=== PATIENT | female | born 1960 | race African-American/Black ===

== ENCOUNTER 2018-08-03 12:05 | Inpatient (IN) | payer OTHER ==
[2018-08-03 12:57] VITALS: BMI 27.6
--- NOTE | 2018-08-03 14:02 | HP ---
CIWA Score Nausea/Vomitin-No Nausea/No Vomiting Muscle Tremors: None Anxiety: 4-Mod. Anxious/Guarded Agitation: 3 Paroxysmal Sweats: 2 Orientation: 0-Oriented Tacttile Disturbances: 0-None Auditory Disturbances: 0-None Visual Disturbances: 0-None Headache: 3-Moderate CIWA-Ar Total Score: 12 - Admission Criteria OASAS Guidelines: Admission for Medically Managed Detox: Requires at least one of the followin. CIWA greater than 12 2. Seizures within the past 24 hours 3. Delirium tremens within the past 24 hours 4. Hallucinations within the past 24 hours 5. Acute intervention needed for co occurring medical disorder 6. Acute intervention needed for co occurring psychiatric disorder 7. Severe withdrawal that cannot be handled at a lower level of care (continued vomiting, continued diarrhea, abnormal vital signs) requiring intravenous medication and/or fluids 8. Admission ROS [facility] Allergies/Adverse Reactions: Allergies Allergy/AdvReac Type Severity Reaction Status Date / Time acyclovir Allergy Mild Itching Verified 08/03/18 13:29 ampicillin [Ampicillin] Allergy Mild Swelling Verified 08/03/18 13:29 levofloxacin [From Levaquin] Allergy Mild Swelling Verified 08/03/18 13:29 Penicillins Allergy Mild Hives Verified 08/03/18 13:29 History of Present Illness: Search Terms: [place], 1960 Search Date: 08/03/2018 01:55:42 PM The Drug Utilization Report below displays all of the controlled substance prescriptions, if any, that your patient has filled in the last twelve months. The information displayed on this report is compiled from pharmacy submissions to the Department, and accurately reflects the information as submitted by the pharmacies. This report was requested by: Radha Parsons | Reference #: [id number] There are no results for the search terms that you entered. pt here requesting detox from ETOH use " I am tired of drinking " , reports daily use , states 1 pint /day and 10 beers x 24 oz x 1 year , prior to which pt was not drinking heavily , reports increased alcohol use after of mother, brother. This is the pt's first detox since 2011 . Latest use 4 am yesterday , current symptoms as above. Pt is very evasive answering questions " I drink for two days and then I sleep for two days " , denies w/d seizures, reports blackouts , occasional tremors. cocaine : 50 $/day since 2017 , not daily " maybe 3-4 x/ month " tobacco : 1/2 ppd " only when I am drinking " PMHX : htn , neuropathy LE , OA hip , anxiety , GERD , dry skin , HIV ( dx 1987 , rf = st ) clinic [facility] PSHx : left leg cyst PSych : as above SHx : lives alone . Unemployed , supports herself from public assistance . Exam Limitations: No Limitations - Ebola screening Have you traveled outside of the country in the last 21 days: No Have you had contact with anyone from an Ebola affected area: No Have you been sick,other than usual withdrawal symptoms: No Do you have a fever: No - Review of Systems Constitutional: See HPI EENT: reports: Other (glasses) Respiratory: reports: No Symptoms reported Cardiac: reports: No Symptoms Reported GI: reports: No Symptoms Reported : reports: No Symptoms Reported Musculoskeletal: reports: Joint Pain Integumentary: reports: Dryness Endocrine: reports: No Symptoms Reported Psychiatric: reports: Orientated x3, Agitated, Anxious Patient History - Patient Medical History Hx Asthma: Yes (Pt is on MDI) Hx Chronic Obstructive Pulmonary Disease (COPD): No Hx Cardiac Disorders: No Hx Hypertension: Yes (Pt has a hx of HTN) Hx Seizures: No Hx Diabetes: No Hx Gastrointestinal Disorders: Yes (Hx of GERD.) Hx Genitourinary Disorders: No Hx Sexually Transmitted Disorders: No Hx Renal Disease (ESRD): No Hx Human Immunodeficiency Virus (HIV): Yes Hx Depression: Yes Hx Suicide Attempt: No Hx Schizophrenia: No - Patient Surgical History Past Surgical History: Yes Hx Neurologic Surgery: No Hx Cataract Extraction: No Hx Cardiac Surgery: No Hx Lung Surgery: No Hx Breast Surgery: No Hx Breast Biopsy: No Hx Abdominal Surgery: No Hx Appendectomy: No Hx Cholecystectomy: No Hx Genitourinary Surgery: No Hx Section: No Hx Orthopedic Surgery: No Other Surgical History: RMOVAL OF CYST LEFT CALF 1992 Anesthesia Reaction: No - PPD History Date: 08/06/11 - Reproductive History Last Menstrual Period: 07/28/11 Patient : No - Smoking Cessation Smoking history: Current some day smoker Have you smoked in the past 12 months: Yes Aproximately how many cigarettes per day: 10 Hx Chewing Tobacco Use: No Initiated information on smoking cessation: No - Substances Abused Alcohol Route: Oral Frequency: Daily Amount used: 1 pint vodka and up Age of first use: 12 Date of Last Use: 08/02/18 Crack Route: Smoking Frequency: Daily Amount used: $20 and up Age of first use: 26 Date of Last Use: 08/02/18 Family Disease History - Family Disease History Family Disease History: Diabetes: Mother (d. 77 chf), Other: Father (d. 67 mi , esrd on hd ), Mother, Brother (1 , A & W ,2 d. : murdered , 1 d. SC 48 ), Sister (3 , A & W ), Daughter (2, A & W no ELVA ) Admission Physical Exam [facility] - Vital Signs Vital Signs: Vital Signs - 24 hr 08/03/18 12:54 Temperature 96.6 F L Pulse Rate 54 L Respiratory 18 Rate Blood Pressure 146/95 - Physical General Appearance: Yes: Mild Distress, Anxious HEENTM: Yes: EOMI, Hearing grossly Normal, Normocephalic, Normal Voice Respiratory: Yes: Chest Non-Tender, Lungs Clear, Normal Breath Sounds Neck: Yes: No masses,lesions,Nodules, Thyroid enlarged Cardiology: Yes: Regular Rhythm, Regular Rate, S1, S2 Back: Yes: Normal Inspection Musculoskeletal: Yes: Gait Steady Extremities: Yes: Non-Tender Neurological: Yes: Fully Oriented, Motor Strength 5/5 Integumentary: Yes: Normal Color - Diagnostic (1) Alcohol abuse Current Visit: Yes Status: Acute (2) Cocaine abuse Current Visit: Yes Status: Chronic (3) Tobacco dependence Current Visit: Yes Status: Chronic [facility]HS Breath Alcohol Content Breath Alcohol Content: 0 Urine Pregancy Test - Result Urine Test Results: Negative - NO line present Urine Drug Screen - Results Drug Screen Negative: No Urine Drug Screen Results: JOS-Cocaine Inpatient Rehab Admission - Rehab Decision to Admit Inpatient rehab admission?: No
[2018-08-03] MEDS ORDERED: MAG HYDROX/AL HYDROX/SIMETH 30 ML UNIT-DOSE CUP PO PRN (15:01)
[2018-08-03] MEDS ORDERED: NICOTINE POLACRILEX 2 MG GUM BUC PRN (15:01)
[2018-08-03] MEDS ORDERED: diazePAM 5 MG TABLET PO PRN (15:01)
[2018-08-03] MEDS ORDERED: MAGNESIUM CITRATE 300 ML BOTTLE PO PRN (15:01)
[2018-08-03] MEDS ORDERED: ACETAMINOPHEN 325 MG TABLET (FP) PO PRN ×2 (15:01)
[2018-08-03] MEDS ORDERED: MAGNESIUM HYDROX 2400MG/30ML ORAL SUSPENSION 30 ML CUP PO PRN (15:01)
[2018-08-03] MEDS ORDERED: MENTHOL/PHENOL 1 EACH UD MM PRN (15:01)
[2018-08-03] MEDS: IBUPROFEN 400 MG TABLET (FP) PO PRN (18:50)
[2018-08-03] MEDS: diazePAM 5 MG TABLET PO SCH (22:02)
[2018-08-03] MEDS: THIAMINE HCL 100 MG TABLET (FP) PO SCH (22:02)
[2018-08-03] MEDS: MELATONIN 5 MG TABLETS PO PRN (22:02)
[2018-08-04] MEDS: diazePAM 5 MG TABLET PO SCH ×3 (05:58→22:09)
[2018-08-04] MEDS ORDERED: cloNIDine HCL 0.1 MG TABLET PO ONE (06:35)
[2018-08-04] MEDS ORDERED: hydrOXYzine PAMOATE 50 MG CAPSULE (FP) PO PRN (10:08)
--- NOTE | 2018-08-04 10:10 | PN ---
[facility] CIWA - CIWA Score Nausea/Vomitin-No Nausea/No Vomiting Muscle Tremors: 2 Anxiety: 4-Mod. Anxious/Guarded Agitation: 0-Normal Activity Paroxysmal Sweats: 2 Orientation: 0-Oriented Tacttile Disturbances: 2-Mild Itch/Numbness/Burn Auditory Disturbances: 0-None Visual Disturbances: 1-Very Mild Sensitivity Headache: 0-None Present CIWA-Ar Total Score: 11 S Progress Note (SOAP) Subjective: c/o itchy skin, anxious Assessment: 08/04/18 10:10 Vital Signs Temperature 96.8 F L 08/04/18 09:44 Pulse Rate 64 08/04/18 09:44 Respiratory Rate 16 08/04/18 09:44 Blood Pressure 139/97 08/04/18 09:44 O2 Sat by Pulse Oximetry (%) Laboratory Last Values WBC 6.1 K/mm3 (4.0-10.0) 08/04/18 07:30 RBC 4.68 M/mm3 (3.60-5.2) 08/04/18 07:30 Hgb 14.5 GM/dL (10.7-15.3) 08/04/18 07:30 Hct 43.0 % (32.4-45.2) 08/04/18 07:30 MCV 91.9 fl (80-96) 08/04/18 07:30 MCH 30.9 pg (25.7-33.7) 08/04/18 07:30 MCHC 33.7 g/dl (32.0-36.0) 08/04/18 07:30 RDW 15.1 % (11.6-15.6) 08/04/18 07:30 Plt Count 125 K/MM3 (134-434) L D 08/04/18 07:30 MPV 10.7 fl (7.5-11.1) D 08/04/18 07:30 Sodium 139 mmol/L (136-145) 08/04/18 07:30 Potassium 4.3 mmol/L (3.5-5.1) 08/04/18 07:30 Chloride 106 mmol/L (98-107) 08/04/18 07:30 Carbon Dioxide 25 mmol/L (21-32) 08/04/18 07:30 Anion Gap 8 MMOL/L (8-16) 08/04/18 07:30 BUN 15 mg/dL (7-18) 08/04/18 07:30 Creatinine 1.0 mg/dL (0.55-1.3) 08/04/18 07:30 Creat Clearance w eGFR 57.35 (>60) 08/04/18 07:30 Random Glucose 93 mg/dL (74-106) 08/04/18 07:30 Calcium 8.4 mg/dL (8.5-10.1) L 08/04/18 07:30 Total Bilirubin 0.5 mg/dL (0.2-1) 08/04/18 07:30 AST 12 U/L (15-37) L 08/04/18 07:30 ALT 20 U/L (13-61) 08/04/18 07:30 Alkaline Phosphatase 56 U/L (45-117) 08/04/18 07:30 Total Protein 7.3 g/dl (6.4-8.2) 08/04/18 07:30 Albumin 3.5 g/dl (3.4-5.0) 08/04/18 07:30 RPR Titer Nonreactive (NONREACTIVE) 08/04/18 07:30 labs reviewed 08/04/18 11:57 AOx3 no distress, +anxious + back pain full ROM ambulating in the unit withdrawal sx Plan: Vistaril 50 mg q6h Eucerin TP BID increase po fluids conitnue detox continue to monitor
[2018-08-04] MEDS: PRENATAL VITAMINS W/ FOLIC ACID TABLET (FP) PO SCH (10:26)
[2018-08-04] MEDS: PANTOPRAZOLE 20 MG TABLET (FP) PO SCH (10:26)
[2018-08-04] MEDS: amLODIPine BESYLATE 5 MG TABLET (FP) PO SCH (10:26)
[2018-08-04] MEDS: IBUPROFEN 400 MG TABLET (FP) PO PRN (10:29)
[2018-08-04 10:55] LABS: ALBUMIN 3.5 g/dl (3.4-5.0); ALK PHOS 56 U/L (45-117); ANION GAP 8 MMOL/L (8-16); BILIRUBIN,TOTAL 0.5 mg/dL (0.2-1); BLOOD UREA NITROGEN 15 mg/dL (7-18); CALCIUM 8.4 mg/dL (8.5-10.1); CHLORIDE 106 mmol/L (98-107); CO2 25 mmol/L (21-32); GLUCOSE,RANDOM 93 mg/dL (74-106); POTASSIUM 4.3 mmol/L (3.5-5.1); SGOT/AST 12 U/L (15-37); SGPT/ALT 20 U/L (13-61); SODIUM 139 mmol/L (136-145); TOT PROT 7.3 g/dl (6.4-8.2)
[2018-08-04 11:06] LABS: HEMOGLOBIN 14.5 GM/dL (10.7-15.3); MCH 30.9 pg (25.7-33.7); MCHC 33.7 g/dl (32.0-36.0); MEAN CELL VOLUME 91.9 fl (80-96); MEAN PLT VOLUME 10.7 fl (7.5-11.1); PLATELET COUNT 125 K/MM3 (134-434); RBC 4.68 M/mm3 (3.60-5.2); RDW 15.1 % (11.6-15.6); WHITE BLOOD COUNT 6.1 K/mm3 (4.0-10.0)
[2018-08-04] MEDS: ATENOLOL 50 MG TABLET (FP) PO SCH (11:17)
[2018-08-04] MEDS: EMTRICITABINE/TENOFOV ALAFENAM (DESCOVY) TABLET PO SCH (12:04)
[2018-08-04] MEDS: DARUNAVIR 800 MG/COBICISTAT 150MG TABLET PO SCH (12:04)
[2018-08-04] MEDS: THIAMINE HCL 100 MG TABLET (FP) PO SCH (22:08)
[2018-08-04] MEDS: MELATONIN 5 MG TABLETS PO PRN (22:09)
[2018-08-04] MEDS: MINERAL OIL/PETROLAT/WATER TOPICAL CREAM 113 GM JAR TP SCH (22:11)
[2018-08-05] MEDS: DARUNAVIR 800 MG/COBICISTAT 150MG TABLET PO SCH (10:03)
[2018-08-05] MEDS: PRENATAL VITAMINS W/ FOLIC ACID TABLET (FP) PO SCH (10:03)
[2018-08-05] MEDS: PANTOPRAZOLE 20 MG TABLET (FP) PO SCH (10:03)
[2018-08-05] MEDS: EMTRICITABINE/TENOFOV ALAFENAM (DESCOVY) TABLET PO SCH (10:03)
[2018-08-05] MEDS: diazePAM 5 MG TABLET PO SCH ×2 (10:03→21:46)
[2018-08-05] MEDS: amLODIPine BESYLATE 5 MG TABLET (FP) PO SCH (10:03)
[2018-08-05] MEDS: ATENOLOL 50 MG TABLET (FP) PO SCH (10:03)
[2018-08-05] MEDS: MINERAL OIL/PETROLAT/WATER TOPICAL CREAM 113 GM JAR TP SCH ×2 (10:05→21:49)
--- NOTE | 2018-08-05 12:24 | PN ---
S CIWA - CIWA Score Nausea/Vomitin-No Nausea/No Vomiting Muscle Tremors: 1-None Visible, but Wirt Anxiety: 1-Mildly Anxious Agitation: 2 Paroxysmal Sweats: 1-Minimal Palms Moist Orientation: 1-Uncertain about Date Tacttile Disturbances: 0-None Auditory Disturbances: 0-None Visual Disturbances: 0-None Headache: 1-Very Mild CIWA-Ar Total Score: 7 S Progress Note (SOAP) Subjective: feeling better mild dry eyes social with peers in day room attend psychotherapy group Objective: 08/05/18 12:20 Vital Signs Temperature 97.4 F L 08/05/18 09:32 Pulse Rate 73 08/05/18 09:32 Respiratory Rate 18 08/05/18 09:32 Blood Pressure 133/89 08/05/18 09:32 O2 Sat by Pulse Oximetry (%) Laboratory Last Values WBC 6.1 K/mm3 (4.0-10.0) 08/04/18 07:30 RBC 4.68 M/mm3 (3.60-5.2) 08/04/18 07:30 Hgb 14.5 GM/dL (10.7-15.3) 08/04/18 07:30 Hct 43.0 % (32.4-45.2) 08/04/18 07:30 MCV 91.9 fl (80-96) 08/04/18 07:30 MCH 30.9 pg (25.7-33.7) 08/04/18 07:30 MCHC 33.7 g/dl (32.0-36.0) 08/04/18 07:30 RDW 15.1 % (11.6-15.6) 08/04/18 07:30 Plt Count 125 K/MM3 (134-434) L D 08/04/18 07:30 MPV 10.7 fl (7.5-11.1) D 08/04/18 07:30 Sodium 139 mmol/L (136-145) 08/04/18 07:30 Potassium 4.3 mmol/L (3.5-5.1) 08/04/18 07:30 Chloride 106 mmol/L (98-107) 08/04/18 07:30 Carbon Dioxide 25 mmol/L (21-32) 08/04/18 07:30 Anion Gap 8 MMOL/L (8-16) 08/04/18 07:30 BUN 15 mg/dL (7-18) 08/04/18 07:30 Creatinine 1.0 mg/dL (0.55-1.3) 08/04/18 07:30 Creat Clearance w eGFR 57.35 (>60) 08/04/18 07:30 Random Glucose 93 mg/dL (74-106) 08/04/18 07:30 Calcium 8.4 mg/dL (8.5-10.1) L 08/04/18 07:30 Total Bilirubin 0.5 mg/dL (0.2-1) 08/04/18 07:30 AST 12 U/L (15-37) L 08/04/18 07:30 ALT 20 U/L (13-61) 08/04/18 07:30 Alkaline Phosphatase 56 U/L (45-117) 08/04/18 07:30 Total Protein 7.3 g/dl (6.4-8.2) 08/04/18 07:30 Albumin 3.5 g/dl (3.4-5.0) 08/04/18 07:30 RPR Titer Nonreactive (NONREACTIVE) 08/04/18 07:30 lab note Assessment: 08/05/18 12:25 mild withdrawal sx Plan: continue detox
[2018-08-05] MEDS: guaiFENesin 600 MG TABLET.ER (FP) PO SCH ×2 (14:44→21:46)
[2018-08-05] MEDS: ARTIFICIAL TEARS (POLYVINYL ALCOHOL) OPTH DROPS OU SCH ×3 (14:45→21:49)
[2018-08-05] MEDS: MELATONIN 5 MG TABLETS PO PRN (21:45)
[2018-08-05] MEDS: THIAMINE HCL 100 MG TABLET (FP) PO SCH (21:52)
[2018-08-06] MEDS ORDERED: diazePAM 5 MG TABLET PO SCH (06:00)
--- NOTE | 2018-08-06 08:43 | DS ---
[facility] Detox Discharge Summary Admission Date: 08/03/18 Discharge Date: 08/06/18 - History Present History: Alcohol Dependence Additional Comments: 57 years old female admitted on 08/03/18 for alcohol withdrawal stabilization completed detox regimen aftercare HIV infectious disease specialist - Physical Exam Results Vital Signs: Vital Signs Temperature 97.2 F L 08/06/18 06:10 Pulse Rate 58 L 08/06/18 06:10 Respiratory Rate 18 08/06/18 06:10 Blood Pressure 120/66 08/06/18 06:10 O2 Sat by Pulse Oximetry (%) Pertinent Admission Physical Exam Findings: alcohol withdrawal sx Laboratory Last Values WBC 6.1 K/mm3 (4.0-10.0) 08/04/18 07:30 RBC 4.68 M/mm3 (3.60-5.2) 08/04/18 07:30 Hgb 14.5 GM/dL (10.7-15.3) 08/04/18 07:30 Hct 43.0 % (32.4-45.2) 08/04/18 07:30 MCV 91.9 fl (80-96) 08/04/18 07:30 MCH 30.9 pg (25.7-33.7) 08/04/18 07:30 MCHC 33.7 g/dl (32.0-36.0) 08/04/18 07:30 RDW 15.1 % (11.6-15.6) 08/04/18 07:30 Plt Count 125 K/MM3 (134-434) L D 08/04/18 07:30 MPV 10.7 fl (7.5-11.1) D 08/04/18 07:30 Sodium 139 mmol/L (136-145) 08/04/18 07:30 Potassium 4.3 mmol/L (3.5-5.1) 08/04/18 07:30 Chloride 106 mmol/L (98-107) 08/04/18 07:30 Carbon Dioxide 25 mmol/L (21-32) 08/04/18 07:30 Anion Gap 8 MMOL/L (8-16) 08/04/18 07:30 BUN 15 mg/dL (7-18) 08/04/18 07:30 Creatinine 1.0 mg/dL (0.55-1.3) 08/04/18 07:30 Creat Clearance w eGFR 57.35 (>60) 08/04/18 07:30 Random Glucose 93 mg/dL (74-106) 08/04/18 07:30 Calcium 8.4 mg/dL (8.5-10.1) L 08/04/18 07:30 Total Bilirubin 0.5 mg/dL (0.2-1) 08/04/18 07:30 AST 12 U/L (15-37) L 08/04/18 07:30 ALT 20 U/L (13-61) 08/04/18 07:30 Alkaline Phosphatase 56 U/L (45-117) 08/04/18 07:30 Total Protein 7.3 g/dl (6.4-8.2) 08/04/18 07:30 Albumin 3.5 g/dl (3.4-5.0) 08/04/18 07:30 RPR Titer Nonreactive (NONREACTIVE) 08/04/18 07:30 lab noted - Treatment Hospital Course: Detox Protocol Followed, Detoxed Safely, Responded well, Discharged Condition Good, Rehab Referral Accepted Patient has Accepted a Rehab Referral to: HIV infectious disease specialist - Medication Discharge Medications: Ambulatory Orders Amlodipine Besylate [Norvasc -] 5 mg PO DAILY 08/03/18 Atenolol [Tenormin -] 100 mg PO DAILY 08/03/18 Darunavir/Cobicistat [Prezcobix 800 mg-150 mg Tablet] 1 each PO DAILY 08/03/18 Emtricitabine/Tenofov Alafenam [Descovy 200-25 mg Tablet (Nf)] 1 each PO DAILY 08/03/18 Fluocinonide 0.05% Cream [Lidex 0.05% Cream -] 1 applic TP QID 08/03/18 Naproxen [EC-Naprosyn] 500 mg PO BID 08/03/18 Omeprazole 20 mg PO DAILY 08/03/18 Ranitidine HCl 150 mg PO DAILY 08/03/18 Sertraline HCl [Zoloft -] 50 mg PO DAILY 08/03/18 - Diagnosis (1) HIV (human immunodeficiency virus infection) Status: Chronic Qualifiers: HIV symptom status: asymptomatic Qualified Code(s): Z21 - Asymptomatic human immunodeficiency virus [HIV] infection status (2) Alcohol abuse Status: Acute (3) Tobacco dependence Status: Acute (4) Hypertension Status: Chronic Qualifiers: Hypertension type: essential hypertension Qualified Code(s): I10 - Essential (primary) hypertension - AMA Did Patient Leave Against Medical Advice: No
[2018-08-06] MEDS: PRENATAL VITAMINS W/ FOLIC ACID TABLET (FP) PO SCH (09:01)
[2018-08-06] MEDS: ATENOLOL 50 MG TABLET (FP) PO SCH (09:02)
[2018-08-06] MEDS: guaiFENesin 600 MG TABLET.ER (FP) PO SCH (09:02)
[2018-08-06] MEDS: ARTIFICIAL TEARS (POLYVINYL ALCOHOL) OPTH DROPS OU SCH (09:02)
[2018-08-06] MEDS: DARUNAVIR 800 MG/COBICISTAT 150MG TABLET PO SCH (09:03)
[2018-08-06] MEDS: EMTRICITABINE/TENOFOV ALAFENAM (DESCOVY) TABLET PO SCH (09:03)
[2018-08-06 09:25] VITALS: BP 138/90; PULSE 72; TEMP 97
== END 2018-08-06 09:56 | disposition home or self-care (01) | DRG 774 ==
LOC: YASAS 12:05 → Y3N 17:02
PROVIDERS: ADMIT Surgery; ATTEND Surgery
PROC: HZ2ZZZZ Detoxification Services for Substance Abuse Treatment (ICD-10-PCS; principal; 2018-08-03)
DX: F10.230 Alcohol dependence with withdrawal, uncomplicated (principal); F14.20 Cocaine dependence, uncomplicated; F17.210 Nicotine dependence, cigarettes, uncomplicated; F41.9 Anxiety disorder, unspecified; I10 Essential (primary) hypertension; Z21 Asymptomatic human immunodeficiency virus [HIV] infection status; M54.9 Dorsalgia, unspecified; M16.10 Unilateral primary osteoarthritis, unspecified hip; L98.8 Other specified disorders of the skin and subcutaneous tissue; K21.9 Gastro-esophageal reflux disease without esophagitis; J45.909 Unspecified asthma, uncomplicated; Z88.0 Allergy status to penicillin; Z88.1 Allergy status to other antibiotic agents
CPT/HCPCS: 36415; 80053; 85027; 86593; J0735

== ENCOUNTER 2019-04-12 16:25 | Inpatient (IN) | payer OTHER ==
[2019-04-12 19:05] VITALS: BMI 36.8
--- NOTE | 2019-04-12 19:36 | HP ---
CIWA Score Nausea/Vomitin-No Nausea/No Vomiting Muscle Tremors: 3 Anxiety: 1-Mildly Anxious Agitation: 1-Slight > Activity Paroxysmal Sweats: No Perspiration Orientation: 0-Oriented Tacttile Disturbances: 1-Very Mild Itch/Numbness (May be r/t dry skin) Auditory Disturbances: 0-None Visual Disturbances: 0-None Headache: 0-None Present CIWA-Ar Total Score: 6 - Admission Criteria OASAS Guidelines: Admission for Medically Managed Detox: Requires at least one of the followin. CIWA greater than 12 2. Seizures within the past 24 hours 3. Delirium tremens within the past 24 hours 4. Hallucinations within the past 24 hours 5. Acute intervention needed for co occurring medical disorder 6. Acute intervention needed for co occurring psychiatric disorder 7. Severe withdrawal that cannot be handled at a lower level of care (continued vomiting, continued diarrhea, abnormal vital signs) requiring intravenous medication and/or fluids 8. Patient presents the following: Acute intervention needed for co-occurring med or psych disorder (Elevated B/P; HIV+) Admission Criteria Met: Admission criteria met Admitting History and Physical - Past Medical History ...LMP: 07/28/11 - Smoking History Smoking history: Current some day smoker Have you smoked in the past 12 months: Yes Aproximately how many cigarettes per day: 10 - Alcohol/Substance Use Hx Alcohol Use: Yes Admission ROS S - [facility] Chief Complaint: Here to detox from alcohol because it's affecting my health". Allergies/Adverse Reactions: Allergies Allergy/AdvReac Type Severity Reaction Status Date / Time acyclovir Allergy Mild Itching Verified 04/12/19 18:53 ampicillin [Ampicillin] Allergy Mild Swelling Verified 04/12/19 18:53 levofloxacin [From Levaquin] Allergy Mild Swelling Verified 04/12/19 18:53 Penicillins Allergy Mild Hives Verified 04/12/19 18:53 History of Present Illness: 58 yo presents seeking alcohol detox - currently w/ JOSLYN 0.204 States last drink about 12:30 -1:00 am. Utox: + JOS Longest sobriety [id number]. Last detox 08/06/18. Relapsed Denies hx seizures, blackouts, overdoses. Alcohol use began at age 12. Reports current daily use approx 2 nips liquor and 10 beers x 24 oz. Cocaine/Crack use began at age 22. Reports smokes every day. Nicotine use began at age 12: Smokes 1 PPD. PMHx: HTN, GERD, OA-knees/Hip, Dry, itchy skin, HIV ( non-compliant w/ meds) MHHx: Denies depression. Episodic anxiety. Denies thoughts of harming self or others. SHx: Domiciled. Unemployed. Denies legal issues. Search Terms: [place]arsha [place], 1960 Search Date: 04/12/2019 07:35:53 PM The Drug Utilization Report below displays all of the controlled substance prescriptions, if any, that your patient has filled in the last twelve months. The information displayed on this report is compiled from pharmacy submissions to the Department, and accurately reflects the information as submitted by the pharmacies. This report was requested by: Jamila Luis | Reference #: [id number] There are no results for the search terms that you entered. Exam Limitations: No Limitations - Ebola screening Have you traveled outside of the country in the last 21 days: No (N) Have you had contact with anyone from an Ebola affected area: No Have you been sick,other than usual withdrawal symptoms: No Do you have a fever: No - Review of Systems Constitutional: Changes in sleep (Difficulty falling asleep) EENT: reports: Cataracts (Small cataract), Blurred Vision, Dental Problems ( Upper dentures.), Other (Dry mouth) Respiratory: reports: No Symptoms reported Cardiac: reports: No Symptoms Reported GI: reports: Indigestion (Acid Reflux - Zantac and/or omprazole) : reports: Other (Recent UTI - rx'd w/ Bactrim x 5 days 3 weeks ago.) Musculoskeletal: reports: Joint Pain (Knee and hip pain - (R) worse than left. pain triggered by walking, certain positions. Improves w/ massage and NSAIDs) Integumentary: reports: Pruritus (r/t dry skin) Neuro: reports: Tremors Endocrine: reports: Increased Thirst Hematology: reports: Other (HIV+. Last saw provider 4 months ago. Non-compliant w/ meds.) Psychiatric: reports: Judgement Intact, Orientated x3, Anxious Patient History - Patient Medical History Hx Asthma: Yes (Pt is on MDI) Hx Chronic Obstructive Pulmonary Disease (COPD): No Hx Cardiac Disorders: No Hx Hypertension: Yes (Pt has a hx of HTN) Hx Seizures: No Hx Diabetes: No Hx Gastrointestinal Disorders: Yes (Hx of GERD.) Hx Genitourinary Disorders: No Hx Sexually Transmitted Disorders: No Hx Renal Disease (ESRD): No Hx Human Immunodeficiency Virus (HIV): Yes Hx Depression: Yes Hx Suicide Attempt: No Hx Schizophrenia: No - Patient Surgical History Past Surgical History: Yes Hx Neurologic Surgery: No Hx Cataract Extraction: No Hx Cardiac Surgery: No Hx Lung Surgery: No Hx Breast Surgery: No Hx Breast Biopsy: No Hx Abdominal Surgery: No Hx Appendectomy: No Hx Cholecystectomy: No Hx Genitourinary Surgery: No Hx Section: No Hx Orthopedic Surgery: No Other Surgical History: RMOVAL OF CYST LEFT CALF 1992 Anesthesia Reaction: No - PPD History Previous Implant?: Yes Documented Results: Negative w/proof Implanted On Prior [facility] Admission?: Yes Date: 08/05/18 PPD to be Administered?: No - Reproductive History Patient is a Female of Child Bearing Age (11 -55 yrs old): Yes Last Menstrual Period: 02/12/15 Patient : No - Smoking Cessation Smoking history: Current every day smoker Have you smoked in the past 12 months: Yes Aproximately how many cigarettes per day: 20 Hx Chewing Tobacco Use: No Initiated information on smoking cessation: Yes 'Breaking Loose' booklet given: 04/12/19 - Substance & Tx. History Hx Alcohol Use: Yes Hx Substance Use: Yes Substance Use Type: Alcohol, Cocaine Hx Substance Use Treatment: Yes (detox, rehab) - Substances abused Alcohol Substance route: Oral Frequency: Daily Amount used: liquor- 1 pint, beer- 1 case Age of first use: 12 Date of last use: 04/12/19 Crack Substance route: Smoking Frequency: Daily Amount used: 4 bags Age of first use: 29 Date of last use: 04/11/19 Admission Physical Exam [facility] - Vital Signs Vital Signs: Vital Signs - 24 hr 04/12/19 18:53 Temperature 98.7 F Pulse Rate 78 Respiratory 18 Rate Blood Pressure 196/109 H - Physical General Appearance: Yes: Nourished, Obese, Tremorous (Mild tremors) HEENTM: Yes: EOMI, Hearing grossly Normal, Normocephalic, Normal Voice, KASSI, Pharynx Normal, Other (Dry, mucous membranes) Respiratory: Yes: Lungs Clear, Normal Breath Sounds, No Respiratory Distress Neck: Yes: No masses,lesions,Nodules, Supple Breast: Yes: Breast Exam Deferred Cardiology: Yes: Regular Rhythm, Regular Rate, S1, S2 Abdominal: Yes: Non Tender, Soft, Increased Bowel Sounds, Protuberent (Increase in abdominal adiposity) Genitourinary: Yes: Within Normal Limits Back: Yes: Normal Inspection Musculoskeletal: Yes: full range of Motion, Gait Steady Extremities: Yes: Normal Capillary Refill (Peripheral pulses +), Tremors (Mild) 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 No increased erythema or exucate) Lymphatic: Yes: Within Normal Limits - Diagnostic (1) Hx of human immunodeficiency virus infection Current Visit: Yes Status: Chronic (2) Nicotine dependence, unspecified, uncomplicated Current Visit: Yes Status: Chronic Qualifiers: Nicotine product type: cigarettes Qualified Code(s): F17.210 - Nicotine dependence, cigarettes, uncomplicated (3) Cocaine dependence, uncomplicated Current Visit: Yes Status: Chronic (4) Alcohol dependence with withdrawal, uncomplicated Current Visit: Yes Status: Acute (5) GERD (gastroesophageal reflux disease) Current Visit: Yes Status: Chronic Qualifiers: Esophagitis presence: without esophagitis Qualified Code(s): K21.9 - Gastro -esophageal reflux disease without esophagitis (6) Essential (primary) hypertension Current Visit: Yes Status: Chronic (7) Osteoarthritis involving multiple joints on both sides of body Current Visit: Yes Status: Chronic (8) Dry skin Current Visit: Yes Status: Chronic (9) Hypertension Current Visit: Yes Status: Chronic Qualifiers: Hypertension type: essential hypertension Qualified Code(s): I10 - Essential (primary) hypertension Cleared for Admission [facility] - Detox or Rehab S Level of Care: Medically Managed Detox Regimen/Protocol: Valium Claeared for Rehab Admission: No Breathalyzer - Breathalyzer Breathalyzer: 0.203 Inpatient Rehab Admission - Rehab Decision to Admit Inpatient rehab admission?: No
[2019-04-12] MEDS ORDERED: ACETAMINOPHEN 325 MG TABLET (FP) PO PRN (20:01)
[2019-04-12] MEDS ORDERED: MAG HYDROX/AL HYDROX/SIMETH 30 ML UNIT-DOSE CUP PO PRN (20:01)
[2019-04-12] MEDS ORDERED: NICOTINE POLACRILEX 2 MG GUM BUC PRN (20:01)
[2019-04-12] MEDS ORDERED: METHOCARBAMOL 500 MG TABLET PO PRN (20:01)
[2019-04-12] MEDS ORDERED: BISMUTH SUBSALICYLATE 524 MG/30 ML UD PO PRN (20:01)
[2019-04-12] MEDS ORDERED: IBUPROFEN 400 MG TABLET (FP) PO PRN (20:01)
[2019-04-12] MEDS ORDERED: MAGNESIUM CITRATE 300 ML BOTTLE PO PRN (20:01)
[2019-04-12] MEDS ORDERED: MENTHOL/PHENOL 1 EACH UD MM PRN (20:01)
[2019-04-12] MEDS ORDERED: MAGNESIUM HYDROX 2400MG/30ML ORAL SUSPENSION 30 ML CUP PO PRN (20:01)
[2019-04-12] MEDS ORDERED: AMMONIUM LACTATE 12% LOTION 225 GM BOTTLE TP PRN (20:13)
[2019-04-12] MEDS ORDERED: COLLOIDAL OATMEAL 1 BAR EACH TP PRN (20:13)
[2019-04-12] MEDS ORDERED: cloNIDine HCL 0.1 MG TABLET PO ONE (20:35)
[2019-04-12] MEDS ORDERED: diazePAM 5 MG TABLET PO ONE (20:45)
[2019-04-12] MEDS: THIAMINE HCL 100 MG TABLET (FP) PO SCH (21:35)
[2019-04-12] MEDS: PANTOPRAZOLE 20 MG TABLET PO SCH (21:35)
[2019-04-12] MEDS ORDERED: MELATONIN 5 MG TABLETS PO PRN (22:00)
[2019-04-12] MEDS: BACITRACIN 15 GM TUBE TOPICAL OINTMENT TP SCH (22:37)
[2019-04-12] MEDS: FLUOCINONIDE 0.05% CREAM (15 GM TUBE) TP SCH (22:38)
[2019-04-13] MEDS: diazePAM 5 MG TABLET PO SCH ×3 (05:33→22:19)
[2019-04-13] MEDS ORDERED: NICOTINE 21 MG/24 HOURS TOPICAL PATCH TD SCH (10:00)
[2019-04-13] MEDS: FLUOCINONIDE 0.05% CREAM (15 GM TUBE) TP SCH ×4 (10:51→23:03)
[2019-04-13] MEDS: BACITRACIN 15 GM TUBE TOPICAL OINTMENT TP SCH ×2 (10:51→23:03)
[2019-04-13] MEDS: PRENATAL VITAMINS W/ FOLIC ACID TABLET (FP) PO SCH (10:54)
[2019-04-13] MEDS: PANTOPRAZOLE 20 MG TABLET PO SCH ×2 (10:54→22:19)
[2019-04-13] MEDS: ACETAMINOPHEN 325 MG TABLET (FP) PO PRN (10:54)
[2019-04-13] MEDS: amLODIPine BESYLATE 5 MG TABLET (FP) PO SCH (10:54)
[2019-04-13 10:57] LABS: ALBUMIN 3.1 g/dl (3.4-5.0); BILIRUBIN,TOTAL 0.4 mg/dL (0.2-1); BLOOD UREA NITROGEN 20.9 mg/dL (7-18); CALCIUM 8.9 mg/dL (8.5-10.1); CREATININE 1.1 mg/dL (0.55-1.3); POTASSIUM 4.3 mmol/L (3.5-5.1); TOT PROT 6.8 g/dl (6.4-8.2)
[2019-04-13 11:07] LABS: HEMATOCRIT 40.3 % (32.4-45.2); HEMOGLOBIN 13.3 GM/dL (10.7-15.3); MCH 30.1 pg (25.7-33.7); MCHC 32.9 g/dl (32.0-36.0); MEAN CELL VOLUME 91.5 fl (80-96); MEAN PLT VOLUME 10.6 fl (7.5-11.1); PLATELET COUNT 85 K/MM3 (134-434); RBC 4.41 M/mm3 (3.60-5.2); RDW 14.4 % (11.6-15.6); WHITE BLOOD COUNT 3.7 K/mm3 (4.0-10.0)
[2019-04-13] MEDS ORDERED: FLU VACCINE QUAD 60 MCG/0.5 ML (MDV 19-20) IM ONE (12:00)
[2019-04-13] MEDS ORDERED: diphenhydrAMINE HCL 25 MG CAPSULE (FP) PO ONE (13:18)
--- NOTE | 2019-04-13 13:18 | PN ---
S CIWA - CIWA Score Nausea/Vomitin-Mild Nausea/No Vomiting Muscle Tremors: 2 Anxiety: 2 Agitation: 2 Paroxysmal Sweats: 2 Orientation: 0-Oriented Tacttile Disturbances: 2-Mild Itch/Numbness/Burn Auditory Disturbances: 0-None Visual Disturbances: 1-Very Mild Sensitivity Headache: 2-Mild CIWA-Ar Total Score: 14 BHS Progress Note (SOAP) Subjective: pt states she is having itching after using the nicotine patch- had a similar reaction before- but thought she had recovered from this reaction- pt has no shortness of breath, able to speak normally. O: Laboratory Tests 04/13/19 04/13/19 07:50 07:50 WBC 3.7 L RBC 4.41 Hgb 13.3 Hct 40.3 MCV 91.5 MCH 30.1 MCHC 32.9 RDW 14.4 Plt Count 85 L D MPV 10.6 Sodium 143 Potassium 4.3 Chloride 111 H Carbon Dioxide 26 Anion Gap 6 L BUN 20.9 H Creatinine 1.1 Est GFR (CKD-EPI)AfAm 64.54 Est GFR (CKD-EPI)NonAf 55.69 Random Glucose 89 Calcium 8.9 Total Bilirubin 0.4 AST 19 ALT 23 Alkaline Phosphatase 54 Total Protein 6.8 Albumin 3.1 L Vital Signs - 24 hr 04/12/19 04/12/19 04/12/19 18:53 20:49 21:46 Temperature 98.7 F 98.6 F 98.2 F Pulse Rate 78 82 72 Respiratory 18 16 18 Rate Blood Pressure 196/109 H 125/87 142/89 04/13/19 04/13/19 04/13/19 00:30 06:00 06:23 Temperature 97.9 F Pulse Rate 78 Respiratory 18 18 18 Rate Blood Pressure 134/87 04/13/19 09:53 Temperature 97.0 F L Pulse Rate 76 Respiratory 18 Rate Blood Pressure 169/110 H a/p: AUD- on detox protocol, getting medications HTN- pt on norvasc Allergy to nicotine patch- pt took off the patch, feeling less itching now, benadryl 25mg stat
--- NOTE | 2019-04-13 16:22 | CONSULT ---
[facility] Psychiatric Consult - Data Date of interview: 04/13/19 Admission source: [facility] Identifying data: Readmission to [facility] for this 58 y/o AA female self- referred for detoxification (ELVA issues : alcohol, crack/cocaine, nicotine, alcohol). Interviewed at [address] [place] [address]. Patient is single, a mother of two, domiciled , unemployed and supported on welfare. Substance Abuse History: Discussed in this session. Details in current [facility] report as follows : Smoking history: Current every day smoker. Have you smoked in the past 12 months: Yes. Aproximately how many cigarettes per day: 20. Hx Chewing Tobacco Use: No. Initiated information on smoking cessation: Yes. ' Breaking Loose' booklet given: 04/12/19. - Substance & Tx. History. Hx Alcohol Use: Yes. Hx Substance Use: Yes. Substance Use Type: Alcohol, Cocaine. Hx Substance Use Treatment: Yes (detox, rehab). - Substances abused. Alcohol. Substance route: Oral. Frequency: Daily. Amount used: liquor- 1 pint, beer- 1 case. Age of first use: 12. Date of last use: 04/12/19. Crack. Substance route: Smoking. Frequency: Daily. Amount used: 4 bags. Age of first use: 29. Date of last use: 04/11/19 Medical History: Remarkable for HIV infection (non-adherent to ART medications) , hypertension and osteoarthritis. Psychiatric History: No reported history of psychiatric hospitalizations. Patient indicates a distant history of treatment with sertraline and paroxetine. " Somebody had diagnosed me with depression in the past but I have not taken those medications for a long time ". No psychiatric OPD care. Ms Galeas denies history of suicide attempts. Physical/Sexual Abuse/Trauma History: Not discussed in this session. Additional Comment: No toxicology for review. Mental Status Exam - Mental Status Exam Alert and Oriented to: Time, Place, Person Cognitive Function: Good Patient Appearance: Well Groomed Mood: Hopeful, Euthymic Affect: Appropriate, Normal Range Patient Behavior: Appropriate, Cooperative Speech Pattern: Clear, Appropriate Voice Loudness: Normal Thought Process: Intact, Goal Oriented Thought Disorder: Not Present Hallucinations: Denies Suicidal Ideation: Denies Homicidal Ideation: Denies Insight/Judgement: Poor Sleep: Well Gait/Station: Other (not observed; patient did not get out of bed) Psychiatric Findings - Problem List ([place] 1, 2,3) (1) Alcohol dependence with withdrawal, uncomplicated Current Visit: Yes Status: Acute (2) Cocaine dependence, uncomplicated Current Visit: Yes Status: Chronic (3) Nicotine dependence, unspecified, uncomplicated Current Visit: Yes Status: Chronic Qualifiers: Nicotine product type: cigarettes Qualified Code(s): F17.210 - Nicotine dependence, cigarettes, uncomplicated - Initial Treatment Plan Initial Treatment Plan: Psychoeducation. Sleep hygiene. Detoxification. AA meetings. Observation.
[2019-04-13] MEDS ORDERED: diazePAM 5 MG TABLET PO PRN (20:09)
[2019-04-13] MEDS: THIAMINE HCL 100 MG TABLET (FP) PO SCH (22:20)
[2019-04-14] MEDS: diazePAM 5 MG TABLET PO SCH ×2 (05:43→18:05)
[2019-04-14] MEDS: BACITRACIN 15 GM TUBE TOPICAL OINTMENT TP SCH ×2 (10:29→22:03)
[2019-04-14] MEDS: PANTOPRAZOLE 20 MG TABLET PO SCH ×2 (10:30→22:03)
[2019-04-14] MEDS: FLUOCINONIDE 0.05% CREAM (15 GM TUBE) TP SCH ×4 (10:30→23:23)
[2019-04-14] MEDS: PRENATAL VITAMINS W/ FOLIC ACID TABLET (FP) PO SCH (10:30)
[2019-04-14] MEDS: amLODIPine BESYLATE 5 MG TABLET (FP) PO SCH (11:10)
--- NOTE | 2019-04-14 13:21 | PN ---
S CIWA - CIWA Score Nausea/Vomitin-No Nausea/No Vomiting Muscle Tremors: 3 Anxiety: 2 Agitation: 3 Paroxysmal Sweats: 2 Orientation: 0-Oriented Tacttile Disturbances: 0-None Auditory Disturbances: 0-None Visual Disturbances: 0-None Headache: 0-None Present CIWA-Ar Total Score: 10 S Progress Note (SOAP) Subjective: sweats interrupted sleep agitation body aches Objective: 04/14/19 13:20 Vital Signs Temperature 98.1 F 04/14/19 09:56 Pulse Rate 88 04/14/19 09:56 Respiratory Rate 18 04/14/19 09:56 Blood Pressure 142/97 04/14/19 09:56 O2 Sat by Pulse Oximetry (%) Laboratory Tests 04/13/19 04/13/19 07:50 07:50 WBC 3.7 L RBC 4.41 Hgb 13.3 Hct 40.3 MCV 91.5 MCH 30.1 MCHC 32.9 RDW 14.4 Plt Count 85 L D MPV 10.6 Sodium 143 Potassium 4.3 Chloride 111 H Carbon Dioxide 26 Anion Gap 6 L BUN 20.9 H Creatinine 1.1 Est GFR (CKD-EPI)AfAm 64.54 Est GFR (CKD-EPI)NonAf 55.69 Random Glucose 89 Calcium 8.9 Total Bilirubin 0.4 AST 19 ALT 23 Alkaline Phosphatase 54 Total Protein 6.8 Albumin 3.1 L labs noted aaox3 ambulating no acute distress Assessment: 04/14/19 13:20 withdrawals Plan: continue detox increase fluids
[2019-04-14] MEDS: THIAMINE HCL 100 MG TABLET (FP) PO SCH (22:02)
[2019-04-14] MEDS: ACETAMINOPHEN 325 MG TABLET (FP) PO PRN (22:02)
[2019-04-15] MEDS ORDERED: diazePAM 5 MG TABLET PO ONE (06:00)
[2019-04-15 06:14] VITALS: BP 153/89; PULSE 90; TEMP 97.7
[2019-04-15] MEDS: PRENATAL VITAMINS W/ FOLIC ACID TABLET (FP) PO SCH (09:07)
[2019-04-15] MEDS: FLUOCINONIDE 0.05% CREAM (15 GM TUBE) TP SCH (09:07)
[2019-04-15] MEDS: BACITRACIN 15 GM TUBE TOPICAL OINTMENT TP SCH (09:07)
[2019-04-15] MEDS: PANTOPRAZOLE 20 MG TABLET PO SCH (09:07)
[2019-04-15] MEDS: amLODIPine BESYLATE 5 MG TABLET (FP) PO SCH (09:07)
--- NOTE | 2019-04-15 09:38 | DS ---
[facility] Detox Discharge Summary Admission Date: 04/12/19 - History Present History: Alcohol Dependence, Cocaine Dependence - Physical Exam Results Vital Signs: Vital Signs Temperature 97.7 F 04/15/19 06:00 Pulse Rate 90 04/15/19 06:00 Respiratory Rate 18 04/15/19 06:00 Blood Pressure 153/89 04/15/19 06:00 O2 Sat by Pulse Oximetry (%) Pertinent Admission Physical Exam Findings: pt arrived in withdrawals Vital Signs Temperature 97.7 F 04/15/19 06:00 Pulse Rate 90 04/15/19 06:00 Respiratory Rate 18 04/15/19 06:00 Blood Pressure 153/89 04/15/19 06:00 O2 Sat by Pulse Oximetry (%) Laboratory Tests 04/13/19 04/13/19 07:50 07:50 WBC 3.7 L RBC 4.41 Hgb 13.3 Hct 40.3 MCV 91.5 MCH 30.1 MCHC 32.9 RDW 14.4 Plt Count 85 L D MPV 10.6 Sodium 143 Potassium 4.3 Chloride 111 H Carbon Dioxide 26 Anion Gap 6 L BUN 20.9 H Creatinine 1.1 Est GFR (CKD-EPI)AfAm 64.54 Est GFR (CKD-EPI)NonAf 55.69 Random Glucose 89 Calcium 8.9 Total Bilirubin 0.4 AST 19 ALT 23 Alkaline Phosphatase 54 Total Protein 6.8 Albumin 3.1 L today pt is aaox3 ambulating no acute distress no s/s of withdrawals - Treatment Hospital Course: Detox Protocol Followed, Detoxed Safely, Responded well, Discharged Condition Good, Rehab Referral Accepted Patient has Accepted a Rehab Referral to: pt declined rehab; referral provided - Medication Discharge Medications: Ambulatory Orders Amlodipine Besylate [Norvasc -] 5 mg PO DAILY 08/03/18 Omeprazole 20 mg PO DAILY 08/03/18 Sertraline HCl [Zoloft -] 50 mg PO DAILY 08/03/18 Bictegrav/Emtricit/Tenofov Ala [Biktarvy 50-200-25 mg Tablet] 1 each PO DAILY - Diagnosis (1) Alcohol dependence with withdrawal, uncomplicated Current Visit: Yes Status: Chronic (2) Cocaine dependence, uncomplicated Current Visit: Yes Status: Chronic (3) Dry skin Current Visit: Yes Status: Chronic (4) Essential (primary) hypertension Current Visit: Yes Status: Chronic (5) GERD (gastroesophageal reflux disease) Current Visit: Yes Status: Chronic Qualifiers: Esophagitis presence: without esophagitis Qualified Code(s): K21.9 - Gastro -esophageal reflux disease without esophagitis (6) Hx of human immunodeficiency virus infection Current Visit: Yes Status: Chronic (7) Hypertension Current Visit: Yes Status: Chronic Qualifiers: Hypertension type: essential hypertension Qualified Code(s): I10 - Essential (primary) hypertension (8) Nicotine dependence, unspecified, uncomplicated Current Visit: Yes Status: Chronic Qualifiers: Nicotine product type: cigarettes Qualified Code(s): F17.210 - Nicotine dependence, cigarettes, uncomplicated (9) Osteoarthritis involving multiple joints on both sides of body Current Visit: Yes Status: Chronic (10) Cocaine abuse Current Visit: No Status: Chronic - AMA Did Patient Leave Against Medical Advice: No
--- NOTE | 2019-04-15 12:02 | EKG ---
Test Reason : Blood Pressure : / mmHG Vent. Rate : 066 BPM Atrial Rate : 066 BPM P-R Int : 120 ms QRS Dur : 082 ms QT Int : 434 ms P-R-T Axes : 055 048 023 degrees QTc Int : 454 ms NORMAL SINUS RHYTHM NONSPECIFIC T WAVE ABNORMALITY ABNORMAL ECG NO PREVIOUS ECGS AVAILABLE Confirmed by NEREYDA HIGH MD ([id number]) on 04/15/2019 12:02:04 PM Referred By: FLORES KAUR Confirmed By:NEREYDA HIGH MD
== END 2019-04-15 09:05 | disposition home or self-care (01) | DRG 774 ==
LOC: YASAS 16:25 → Y6N 20:26
PROVIDERS: ADMIT Allergy & Immunology; ATTEND Allergy & Immunology
PROC: HZ2ZZZZ Detoxification Services for Substance Abuse Treatment (ICD-10-PCS; principal; 2019-04-12)
DX: F10.230 Alcohol dependence with withdrawal, uncomplicated (principal); F14.20 Cocaine dependence, uncomplicated; F17.210 Nicotine dependence, cigarettes, uncomplicated; Z21 Asymptomatic human immunodeficiency virus [HIV] infection status; I10 Essential (primary) hypertension; K21.9 Gastro-esophageal reflux disease without esophagitis; L85.3 Xerosis cutis; M17.0 Bilateral primary osteoarthritis of knee; M16.0 Bilateral primary osteoarthritis of hip; Z87.440 Personal history of urinary (tract) infections; Z88.0 Allergy status to penicillin; Z88.1 Allergy status to other antibiotic agents; Z88.8 Allergy status to other drugs, medicaments and biological substances
CPT/HCPCS: 36415; 80053; 85027; 86593; 93005; 93010; G0008; J0735; Q2036

== ENCOUNTER 2023-12-09 15:33 | Inpatient (IN) | payer OTHER ==
[2023-12-09 17:11] VITALS: BMI 37.1
[2023-12-09] MEDS ORDERED: NALOXONE (NARCAN) HCL 4 MG/0.1 ML SPRAY NS PRN (19:04)
[2023-12-09] MEDS ORDERED: ONDANSETRON *ODT* 4 MG TABLET SL PRN (19:04)
[2023-12-09] MEDS ORDERED: POLYETHYLENE GLYCOL (HEALTHYLAX) 3350 17 GM PACKET PO PRN (19:04)
[2023-12-09] MEDS ORDERED: guaiFENesin 600 MG TABLET.ER (FP) PO PRN (19:04)
[2023-12-09] MEDS ORDERED: MAGNESIUM HYDROX 2400MG/30ML ORAL SUSPENSION 30 ML CUP PO PRN (19:04)
[2023-12-09] MEDS ORDERED: diazePAM 5 MG TABLET PO PRN (19:04)
[2023-12-09] MEDS ORDERED: NALOXONE HCL 0.4 MG/ML VIAL IM PRN (19:04)
[2023-12-09] MEDS ORDERED: BISMUTH SUBSALICYLATE 524 MG/30 ML PO PRN (19:04)
[2023-12-09] MEDS ORDERED: ACETAMINOPHEN 325 MG TABLET (FP) PO PRN (19:04)
[2023-12-09] MEDS ORDERED: DICYCLOMINE HCL 10 MG CAPSULE PO PRN (19:04)
[2023-12-09] MEDS ORDERED: IBUPROFEN 400 MG TABLET (FP) PO PRN (19:04)
[2023-12-09] MEDS ORDERED: BENZONATATE 200 MG CAPSULE PO PRN (19:04)
[2023-12-09] MEDS ORDERED: MAG HYDROX/AL HYDROX/SIMETH 30 ML UNIT-DOSE CUP PO PRN (19:04)
[2023-12-09] MEDS ORDERED: IBUPROFEN 600 MG TABLET (FP) PO PRN (19:04)
[2023-12-09] MEDS ORDERED: LOPERAMIDE HCL 2 MG CAPSULE PO PRN (19:04)
[2023-12-09] MEDS: diazePAM 5 MG TABLET PO SCH (22:11)
[2023-12-09] MEDS: MELATONIN 5 MG TABLETS PO SCH (22:11)
[2023-12-09] MEDS: THIAMINE 100 MG TABLET PO SCH (22:11)
[2023-12-10] MEDS: PRENATAL VITAMINS W/ FOLIC ACID TABLET (FP) PO SCH (10:20)
[2023-12-10] MEDS: amLODIPine BESYLATE 5 MG TABLET (FP) PO SCH (10:20)
[2023-12-10] MEDS: BICTEGRAV/EMTRICIT/TENOFOV (BIKTARVY) 50-200-25 MG TABLET PO SCH (10:20)
[2023-12-10] MEDS: PANTOPRAZOLE 20 MG TABLET PO SCH (10:20)
[2023-12-10 10:43] LABS: CHLORIDE 108 mmol/L (98-107); POTASSIUM 4.1 mmol/L (3.5-5.1); SODIUM 141 mmol/L (136-145)
[2023-12-10 10:44] LABS: HEMATOCRIT 39.9 % (32.4-45.2); HEMOGLOBIN 13.7 GM/dL (10.7-15.3); MCH 31.8 pg (25.7-33.7); MCHC 34.3 g/dl (32.0-36.0); MEAN CELL VOLUME 92.6 fl (80-96); MEAN PLT VOLUME 8.2 fl (7.5-11.1); PLATELET COUNT 208 10^3/uL (134-434); RBC 4.31 M/mm3 (3.60-5.2); RDW 14.7 % (11.6-15.6)
[2023-12-10 10:46] LABS: ANION GAP 2 mmol/L (4-13); CALCIUM 8.6 mg/dL (8.5-10.1); CO2 31 mmol/L (21-32); GLUCOSE,RANDOM 92 mg/dL (74-106)
[2023-12-10 10:47] LABS: ALBUMIN 3.2 g/dl (3.4-5.0); BLOOD UREA NITROGEN 17.3 mg/dL (7-18)
[2023-12-10 10:49] LABS: CREATININE 0.9 mg/dL (0.55-1.3); SGOT/AST 16 U/L (15-37); SGPT/ALT 21 U/L (13-61)
[2023-12-10 10:51] LABS: ALK PHOS 54 U/L (45-117); BILIRUBIN,TOTAL 0.4 mg/dL (0.2-1)
[2023-12-10] MEDS: cloNIDine HCL 0.1 MG TABLET PO PRN (17:04)
[2023-12-10] MEDS: BENZOCAINE/MENTHOL (CHLORASEPTIC ) LOZENGE MM PRN (22:17)
[2023-12-11] MEDS: diazePAM 5 MG TABLET PO SCH (05:58)
[2023-12-11] MEDS: HYDROCHLOROTHIAZIDE 25 MG TABLET (FP) PO ONE (13:14)
[2023-12-11] MEDS: hydrOXYzine PAMOATE 25 MG CAPSULE (FP) PO PRN (20:15)
[2023-12-12] MEDS: diazePAM 5 MG TABLET PO SCH (05:57)
[2023-12-12] MEDS: HYDROCHLOROTHIAZIDE 25 MG TABLET (FP) PO SCH (10:20)
[2023-12-12] MEDS: MINERAL OIL/PETROLAT/WATER TOPICAL CREAM 113 GM JAR TP SCH (10:21)
[2023-12-12] MEDS: FLUCONAZOLE 100 MG TABLET (UD) PO SCH (11:39)
[2023-12-12] MEDS: METHOCARBAMOL 500 MG TABLET PO PRN (22:03)
[2023-12-13] MEDS: diazePAM 5 MG TABLET PO ONE (05:15)
[2023-12-13] MEDS: diphenhydrAMINE HCL 25 MG CAPSULE (FP) PO ONE (21:49)
[2023-12-14 06:40] VITALS: RESP 16
[2023-12-14] MEDS ORDERED: diphenhydrAMINE HCL 25 MG CAPSULE (FP) PO PRN ×2 (10:37→15:56)
[2023-12-14 13:27] VITALS: BP 139/92; PULSE 78; TEMP 97.8
[2023-12-14] MEDS ORDERED: MAGNESIUM HYDROX 2400MG/30ML ORAL SUSPENSION 30 ML CUP PO PRN ×2 (15:32→15:37)
[2023-12-14] MEDS ORDERED: BENZOCAINE/MENTHOL (CHLORASEPTIC ) LOZENGE MM PRN ×2 (15:32→15:37)
[2023-12-14] MEDS ORDERED: MAG HYDROX/AL HYDROX/SIMETH 30 ML UNIT-DOSE CUP PO PRN ×2 (15:32→15:37)
[2023-12-14] MEDS ORDERED: hydrOXYzine PAMOATE 25 MG CAPSULE (FP) PO PRN ×2 (15:32→15:37)
[2023-12-14] MEDS ORDERED: BENZONATATE 200 MG CAPSULE PO PRN ×2 (15:32→15:37)
[2023-12-14] MEDS ORDERED: IBUPROFEN 400 MG TABLET (FP) PO PRN ×2 (15:32→15:37)
[2023-12-14] MEDS ORDERED: NALOXONE (NARCAN) HCL 4 MG/0.1 ML SPRAY NS PRN ×2 (15:32→15:37)
[2023-12-14] MEDS ORDERED: IBUPROFEN 600 MG TABLET (FP) PO PRN ×2 (15:32→15:37)
[2023-12-14] MEDS ORDERED: POLYETHYLENE GLYCOL (HEALTHYLAX) 3350 17 GM PACKET PO PRN ×2 (15:32→15:37)
[2023-12-14] MEDS ORDERED: guaiFENesin 600 MG TABLET.ER (FP) PO PRN ×2 (15:32→15:37)
[2023-12-14] MEDS ORDERED: LOPERAMIDE HCL 2 MG CAPSULE PO PRN ×2 (15:32→15:37)
[2023-12-14] MEDS ORDERED: METHOCARBAMOL 500 MG TABLET PO PRN ×2 (15:32→15:37)
[2023-12-14] MEDS ORDERED: ACETAMINOPHEN 325 MG TABLET (FP) PO PRN ×2 (15:32→15:37)
[2023-12-14] MEDS ORDERED: NALOXONE HCL 0.4 MG/ML VIAL IVPUSH PRN ×2 (15:32→15:37)
[2023-12-14] MEDS ORDERED: THIAMINE 100 MG TABLET PO SCH ×2 (22:00)
[2023-12-14] MEDS ORDERED: MELATONIN 5 MG TABLETS PO SCH ×2 (22:00)
[2023-12-15] MEDS ORDERED: PRENATAL VITAMINS W/ FOLIC ACID TABLET (FP) PO SCH ×2 (10:00)
== END 2023-12-14 13:53 | disposition other institution (70) | DRG 774 ==
LOC: YASAS 15:33 → Y3N 19:46
PROVIDERS: ADMIT Allergy & Immunology; ATTEND Surgery
PROC: HZ2ZZZZ Detoxification Services for Substance Abuse Treatment (ICD-10-PCS; principal; 2023-12-09)
DX: F10.230 Alcohol dependence with withdrawal, uncomplicated (principal); F14.20 Cocaine dependence, uncomplicated; F17.210 Nicotine dependence, cigarettes, uncomplicated; B20 Human immunodeficiency virus [HIV] disease; B37.2 Candidiasis of skin and nail; I10 Essential (primary) hypertension; I25.10 Atherosclerotic heart disease of native coronary artery without angina pectoris; E11.9 Type 2 diabetes mellitus without complications; E78.5 Hyperlipidemia, unspecified; K21.9 Gastro-esophageal reflux disease without esophagitis; L98.8 Other specified disorders of the skin and subcutaneous tissue; Z88.0 Allergy status to penicillin; Z88.1 Allergy status to other antibiotic agents; Z86.19 Personal history of other infectious and parasitic diseases; Z56.0 Unemployment, unspecified
CPT/HCPCS: 36415; 80053; 80305; 80307; 85027; 86593; 86780; 93005; 93010

== ENCOUNTER 2023-12-14 13:55 | Inpatient (IN) | payer OTHER ==
[2023-12-14 15:57] VITALS: BMI 37.1
[2023-12-14] MEDS: MELATONIN 5 MG TABLETS PO PRN (22:50)
[2023-12-14] MEDS: hydrOXYzine PAMOATE 25 MG CAPSULE (FP) PO ONE (22:51)
[2023-12-15] MEDS ORDERED: MAG HYDROX/AL HYDROX/SIMETH 30 ML UNIT-DOSE CUP PO PRN (08:16)
[2023-12-15] MEDS ORDERED: NALOXONE HCL 0.4 MG/ML VIAL IVPUSH PRN (08:16)
[2023-12-15] MEDS ORDERED: LOPERAMIDE HCL 2 MG CAPSULE PO PRN (08:16)
[2023-12-15] MEDS ORDERED: MAGNESIUM HYDROX 2400MG/30ML ORAL SUSPENSION 30 ML CUP PO PRN (08:16)
[2023-12-15] MEDS ORDERED: POLYETHYLENE GLYCOL (HEALTHYLAX) 3350 17 GM PACKET PO PRN (08:16)
[2023-12-15] MEDS ORDERED: NALOXONE (NARCAN) HCL 4 MG/0.1 ML SPRAY NS PRN (08:16)
[2023-12-15] MEDS ORDERED: IBUPROFEN 400 MG TABLET (FP) PO PRN (08:16)
[2023-12-15] MEDS ORDERED: BENZONATATE 200 MG CAPSULE PO PRN (08:16)
[2023-12-15] MEDS ORDERED: guaiFENesin 600 MG TABLET.ER (FP) PO PRN (08:16)
[2023-12-15] MEDS: BICTEGRAV/EMTRICIT/TENOFOV (BIKTARVY) 50-200-25 MG TABLET PO SCH (09:44)
[2023-12-15] MEDS: PRENATAL VITAMINS W/ FOLIC ACID TABLET (FP) PO SCH (09:45)
[2023-12-15] MEDS: HYDROCHLOROTHIAZIDE 25 MG TABLET (FP) PO SCH (09:45)
[2023-12-15] MEDS: PANTOPRAZOLE 20 MG TABLET PO SCH (09:45)
[2023-12-15] MEDS: amLODIPine BESYLATE 5 MG TABLET (FP) PO SCH (09:46)
[2023-12-15] MEDS: SERTRALINE HCL 50 MG TABLET (FP) PO SCH (09:47)
[2023-12-15] MEDS: diphenhydrAMINE HCL 25 MG CAPSULE (FP) PO PRN (21:49)
[2023-12-15] MEDS: ACETAMINOPHEN 325 MG TABLET (FP) PO PRN (21:49)
[2023-12-15] MEDS: THIAMINE 100 MG TABLET PO SCH (21:49)
[2023-12-15] MEDS: MELATONIN 5 MG TABLETS PO SCH (21:50)
[2023-12-16] MEDS: HYDROCORTISONE 0.5% TOPICAL CREAM 30 GM TUBE TP PRN (08:57)
[2023-12-17] MEDS: METHOCARBAMOL 500 MG TABLET PO PRN (21:14)
[2023-12-18] MEDS: FLUOCINONIDE 0.05% CREAM (60 GM TUBE) TP SCH (21:20)
[2023-12-18] MEDS: diphenhydrAMINE HCL 25 MG CAPSULE (FP) PO PRN (21:20)
[2023-12-21] MEDS: hydrOXYzine PAMOATE 25 MG CAPSULE (FP) PO PRN (21:19)
[2023-12-22] MEDS: SUVOREXANT 5 MG TABLET PO PRN (21:31)
[2023-12-23] MEDS: IBUPROFEN 600 MG TABLET (FP) PO PRN (06:58)
[2023-12-23 10:38] LABS: INR 0.89 (0.83-1.09); PROTHROMBIN TIME (PATIENT) 10.1 SEC (9.7-13.0)
[2023-12-25] MEDS: NALTREXONE HCL 50 MG TABLET PO ONE (14:52)
[2023-12-25] MEDS: NALTREXONE HCL 50 MG TABLET PO SCH (14:54)
[2023-12-25] MEDS: LACTULOSE 20 GM/30 ML UDC (FOR ORAL USE ONLY) PO SCH (17:19)
[2023-12-25] MEDS: SUVOREXANT 10 MG TABLET PO PRN (21:26)
[2023-12-25] MEDS ORDERED: LACTULOSE 20 GM/30 ML UDC (FOR ORAL USE ONLY) PO SCH (22:00)
[2023-12-26] MEDS: NALTREXONE HCL 50 MG TABLET PO SCH (10:14)
[2023-12-26] MEDS: CHOLECALCIFEROL (VIT D3) 400 UNIT (10 MCG) TABLET PO SCH (10:14)
[2023-12-26] MEDS ORDERED: ACETAMINOPHEN 325 MG TABLET (FP) ONE (10:17)
[2023-12-31] MEDS: NALTREXONE MICROSPHERES (VIVITROL) 380 MG DISP.SYRIN IM ONE (17:41)
[2023-12-31] MEDS ORDERED: SUVOREXANT 10 MG TABLET PO PRN (22:00)
[2024-01-01] MEDS: NALTREXONE HCL 50 MG TABLET PO SCH (17:24)
[2024-01-01] MEDS: guaiFENesin 600 MG TABLET.ER (FP) PO PRN (19:50)
[2024-01-01] MEDS: BENZOCAINE/MENTHOL (CHLORASEPTIC ) LOZENGE MM PRN (19:53)
[2024-01-01] MEDS: BACLOFEN 10 MG TABLET (FP) PO SCH (21:34)
[2024-01-01] MEDS: valACYclovir HCL 500 MG TABLET (FP) PO SCH (21:34)
[2024-01-02] MEDS: BENZONATATE 200 MG CAPSULE PO PRN (06:44)
[2024-01-02] MEDS: amLODIPine BESYLATE 5 MG TABLET (FP) PO SCH (10:04)
[2024-01-02] MEDS: OXYMETAZOLINE 0.05% NASAL SOLUTION 15 ML BOTTLE NS PRN (17:59)
[2024-01-03] MEDS: NALTREXONE MICROSPHERES (VIVITROL) 380 MG DISP.SYRIN IM ONE (11:01)
[2024-01-03] MEDS ORDERED: SUVOREXANT 10 MG TABLET PO PRN (22:00)
[2024-01-04 07:12] VITALS: BP 153/86; PULSE 68; RESP 16; TEMP 97.4
== END 2024-01-04 12:15 | disposition home or self-care (01) | DRG 772 ==
LOC: YASAS 13:55 → Y3NR 13:57 → Y5N 12-17 12:59
PROVIDERS: ADMIT Allergy & Immunology; ATTEND Psychiatry & Neurology Pain Medicine
PROC: HZ42ZZZ Group Counseling for Substance Abuse Treatment, Cognitive-Behavioral (ICD-10-PCS; principal; 2023-12-14)
DX: F10.20 Alcohol dependence, uncomplicated (principal); F14.10 Cocaine abuse, uncomplicated; F17.210 Nicotine dependence, cigarettes, uncomplicated; F41.9 Anxiety disorder, unspecified; I10 Essential (primary) hypertension; K21.9 Gastro-esophageal reflux disease without esophagitis; Z21 Asymptomatic human immunodeficiency virus [HIV] infection status; M19.90 Unspecified osteoarthritis, unspecified site; E72.20 Disorder of urea cycle metabolism, unspecified; J02.9 Acute pharyngitis, unspecified; B02.9 Zoster without complications; R05.9 Cough, unspecified; L30.9 Dermatitis, unspecified
CPT/HCPCS: 0241U-QW; 36415; 82140; 82306; 83735; 85610; 86803; 87811; J0475; J2315